=== PATIENT | female | born 1965 | race Two or more races ===

== ENCOUNTER 2017-11-20 16:05 | Emergency (ER) | payer MEDICAID, OTHER ==
[~2017-11-20] VITALS: Ht 152.4 cm; Wt 67.0 kg
[2017-11-20 18:27] LABS: BASOPHILS % 0.7 % (0.0-2.0); EOSINOPHILS % 2.3 % (0.0-5.0); HEMATOCRIT. 35.3 % (36.0-48.0); HEMOGLOBIN. 12.3 g/dL (12.0-16.0); LYMPHOCYTES % 34.1 % (20.0-50.0); MEAN CORPUSCULAR HEMOGLOBIN 32.5 pg (28.0-32.0); MEAN CORPUSCULAR VOLUME 93.5 fL (81.0-99.0); MONOCYTES % 7.1 % (2.0-8.0); NEUTROPHILS % 55.8 % (40.0-76.0); PLATELET 238 x1000/uL (130-400); RED BLOOD CELL COUNT 3.78 mill/uL (4.2-5.4); RED CELL DISTRIBUTION WIDTH 12.7 % (11.6-14.6)
[2017-11-20 18:31] LABS: CHLORIDE 106 mEq/L (98-107)
[2017-11-20 18:34] LABS: INR 0.9; PROTHROMBIN TIME 9.9 sec (9.4-11.6)
[2017-11-20 20:11] VITALS: BP 125/72
== END 2017-11-20 20:11 | disposition home or self-care (01) ==
LOC: ER 16:05
DX: S46.911A Strain of unspecified muscle, fascia and tendon at shoulder and upper arm level, right arm, initial encounter (principal); X50.3XXA Overexertion from repetitive movements, initial encounter; R00.1 Bradycardia, unspecified; R07.89 Other chest pain; H11.31 Conjunctival hemorrhage, right eye; R51 Headache; M54.2 Cervicalgia; I51.7 Cardiomegaly; Y93.E9 Activity, other interior property and clothing maintenance; Y92.098 Other place in other non-institutional residence as the place of occurrence of the external cause; Y99.0 Civilian activity done for income or pay
CPT/HCPCS: 36415; 70450; 71045; 80053; 83880; 84484; 85025; 85610; 93005; 99285; Z7610

== ENCOUNTER 2019-01-06 15:04 | Emergency (ER) | payer MEDICAID ==
[~2019-01-06] VITALS: Ht 162.6 cm; Wt 69.0 kg
[~2019-01-06 15:04] MED LIST: ASPI-1158 MT
[2019-01-06 17:55] VITALS: BP 110/60
== END 2019-01-06 19:45 | disposition left against medical advice (07) ==
LOC: ER 15:04
DX: Z53.21 Procedure and treatment not carried out due to patient leaving prior to being seen by health care provider (principal)

== ENCOUNTER 2021-10-03 10:05 | Emergency (ER) | payer MEDICAID ==
[~2021-10-03] VITALS: Ht 162.6 cm; Wt 70.0 kg
[~2021-10-03 10:05] MED LIST changes: -ASPI-1158 MT; +ASPI-1406 MT
[2021-10-03 10:19] VITALS: BP 120/77
[2021-10-03] MEDS ORDERED: IBUP-2028 MT (12:57)
== END 2021-10-03 13:31 | disposition home or self-care (01) ==
LOC: ER 10:16
DX: M25.531 Pain in right wrist (principal); M19.031 Primary osteoarthritis, right wrist; I25.2 Old myocardial infarction; Z98.890 Other specified postprocedural states; Z79.82 Long term (current) use of aspirin
CPT/HCPCS: 29125; 73110; 99283

== ENCOUNTER 2022-01-15 20:00 | Emergency (ER) | payer MEDICAID, OTHER ==
[~2022-01-15] VITALS: Ht 152.4 cm; Wt 72.1 kg
[~2022-01-15 20:00] MED LIST changes: +IBUP-2028 MT
[2022-01-15 21:19] VITALS: BP 119/72
[2022-01-16 01:28] LABS: BASOPHILS % 0.6 % (0.0-2.0); EOSINOPHILS % 2.8 % (0.0-5.0); HEMATOCRIT. 35.5 % (36.0-48.0); HEMOGLOBIN. 12.3 g/dL (12.0-16.0); LYMPHOCYTES % 40.1 % (20.0-50.0); MEAN CORPUSCULAR HEMOGLOBIN 32.2 pg (28.0-32.0); MEAN CORPUSCULAR VOLUME 92.6 fL (81.0-99.0); MEAN PLATELET VOLUME 7.8 fl (7.4-10.4); MONOCYTES % 6.4 % (2.0-8.0); NEUTROPHILS % 50.1 % (40.0-76.0); PLATELET 259 x1000/uL (130-400); RED BLOOD CELL COUNT 3.83 mill/uL (4.2-5.4); RED CELL DISTRIBUTION WIDTH 13.1 % (11.6-14.6)
[2022-01-16 01:42] LABS: CHLORIDE 105 mEq/L (98-107)
== END 2022-01-16 01:27 | disposition home or self-care (01) ==
LOC: ER 20:00
DX: G89.29 Other chronic pain (principal); R10.12 Left upper quadrant pain; Z98.890 Other specified postprocedural states
CPT/HCPCS: 36415; 80053; 83880; 85025; 99283

== ENCOUNTER 2023-07-18 22:40 | Emergency (ER) | payer MEDICAID, OTHER ==
[~2023-07-18] VITALS: Ht 162.6 cm; Wt 71.5 kg
[2023-07-18 23:16] VITALS: O2SAT 97
[2023-07-18 23:40] LABS: BASOPHILS % 0.7 % (0.0-2.0); EOSINOPHILS % 2.7 % (0.0-5.0); HEMATOCRIT. 37.4 % (36.0-48.0); HEMOGLOBIN. 12.7 g/dL (12.0-16.0); LYMPHOCYTES % 31.7 % (20.0-50.0); MEAN CORPUSCULAR HEMOGLOBIN 31.8 pg (28.0-32.0); MEAN CORPUSCULAR HGB CONC 33.9 g/dL (31.0-37.0); MEAN CORPUSCULAR VOLUME 93.7 fL (81.0-99.0); MEAN PLATELET VOLUME 7.7 fl (7.4-10.4); MONOCYTES % 7.6 % (2.0-8.0); NEUTROPHILS % 57.3 % (40.0-76.0); PLATELET 236 x1000/uL (130-400); RED BLOOD CELL COUNT 3.99 mill/uL (4.2-5.4); RED CELL DISTRIBUTION WIDTH 12.5 % (11.6-14.6)
[2023-07-18 23:51] LABS: ALANINE AMINOTRANSFERASE 30 IU/L (10-49); ALBUMIN 4.5 g/dL (3.2-4.8); ASPARTATE AMINOTRANSFERASE 29 IU/L (<34); BILIRUBIN TOTAL 0.3 mg/dL (0.1-1.0); CALCIUM 9.2 mg/dL (8.7-10.4); CARBON DIOXIDE 27 mEq/L (21-32); CHLORIDE 106 mEq/L (98-107); CREATININE 0.8 mg/dL (0.6-1.0); GLUCOSE 107 mg/dL (70-105); POTASSIUM 3.8 mEq/L (3.5-5.1); PROTEIN TOTAL 7.7 g/dL (6.0-8.3); SODIUM 140 mEq/L (136-145); UREA NITROGEN BLOOD 23 mg/dL (9-23)
[2023-07-19] LABS: CLARITY URINE CLEAR (CLEAR); COLOR URINE YELLOW (YELLOW); GLUCOSE URINE NEGATIVE (NEGATIVE); KETONES URINE NEGATIVE (NEGATIVE); LEUKOCYTE ESTERASE URINE 1+ (NEGATIVE); NITRITE URINE NEGATIVE (NEGATIVE); OCCULT BLOOD URINE NEGATIVE (NEGATIVE); PROTEIN URINE NEGATIVE (NEGATIVE); SPECIFIC GRAVITY URINE 1.027 (1.005-1.030)
[2023-07-19 04:34] LABS: LACTIC ACID 3.2 mmol/L (0.4-2.0)
[2023-07-19] MEDS: SODIUM CHLORIDE 0.9% 1,000 ML IV ONE (04:39)
[2023-07-19] MEDS: ACETAMINOPHEN 325MG TABLET PO STA (04:39)
[2023-07-19 04:48] LABS: SQUAMOUS EPITHELIAL CELL URINE FEW /lpf (RARE/1+)
[2023-07-19 04:49] LABS: BACTERIA URINE NONE SEEN; RBC URINE 0-2 /hpf (0-2)
[2023-07-19] MEDS: KETOROLAC 15MG/ML VIAL IV NR (04:53)
[2023-07-19] MEDS: SODIUM CHLORIDE 0.9% 500 ML IV ONE (04:54)
[2023-07-19] MEDS: IOHEXOL-300 100 ML BOTTLE ONE (07:18)
[2023-07-19] MEDS ORDERED: IBUP-2029 MT (07:24)
[2023-07-19 07:44] VITALS: BP 109/58; PULSE 65; RESP 15; TEMP 98
== END 2023-07-19 07:47 | disposition home or self-care (01) ==
LOC: ER 22:40
DX: K42.9 Umbilical hernia without obstruction or gangrene (principal); Z98.890 Other specified postprocedural states
CPT/HCPCS: 99285; 80053; 81003; 83690; 85025; 36415; 74177; 96374; 96361; 83605; Q9967; J1885; J7030